=== PATIENT | male | born 1965 | race Caucasian/White ===

== ENCOUNTER 2017-08-13 15:20 | Emergency (ER) | payer OTHER ==
[2017-08-13 15:29] VITALS: BP 139/94; PULSE 65; RESP 15; TEMP 97.7; O2SAT 100
[2017-08-13] MEDS ORDERED: TDAP Vaccine 0.5 mL Syr IM ONE ×2 (15:45→15:58)
[2017-08-13] MEDS ORDERED: Oxycodone/Acetaminophen 5/325 mg Tab PO STA (15:59)
--- NOTE | 2017-08-13 17:10 | ED PDOC ---
Arrival/HPI - General Chief Complaint: Upper Extremity Problem/Injury Time Seen by Provider: 08/13/17 15:41 Historian: Patient - History of Present Illness Narrative History of Present Illness (Text): 08/13/17 17:07 51 yo male w/o significant PMHx come in for evaluation of FB in left thumb sustained 30-40 min [employer], while at work. 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 Otherwise, pt denies weakness, sensory or vascular deficits to injured hand, noted large nail stick out left thumb. Pt denies any other complaints related to injury. Ambulate to Ed for evaluation, in pain. Past Medical History - Provider Review Nursing Documentation Reviewed: Yes - Travel History Have you recently traveled outside [place] w/in the past 3 mons?: No - Past History Past History: No Previous - Tetanus Immunization Tetanus Immunization: Unknown - Psychiatric Hx Substance Use: No - Surgical History Hx Abdominal Aortic Aneurysm Repair: No Family/Social History - Physician Review Nursing Documentation Reviewed: Yes Family/Social History: No Known Family HX Smoking Status: Heavy Smoker > 10 Cigarettes Daily Hx Alcohol Use: Yes Frequency of alcohol use: Socially Hx Substance Use: No Allergies/Home Meds Allergies/Adverse Reactions: Allergies Penicillins Allergy (Verified 08/13/17 15:29) ANAPHYLAXIS Sulfa (Sulfonamide Antibiotics) Allergy (Verified 08/13/17 15:33) ANAPHYLAXIS Review of Systems - Physician Review All systems were reviewed & negative as marked: Yes - Review of Systems Constitutional: Normal Musculoskeletal: Arthralgias, Joint Swelling Skin: Skin Lesions, Other (Left thumb FB) Neurological: Normal Endocrine: Normal Hemo/Lymphatic: Normal Psychiatric: Normal Physical Exam Vital Signs Reviewed: Yes Vital Signs Temp Pulse Resp BP Pulse Ox 08/13/17 15:29 97.7 F 65 15 139/94 H 100 Temperature: Afebrile Blood Pressure: Normal Pulse: Regular Respiratory Rate: Normal Appearance: Positive for: Well-Appearing, Non-Toxic Pain Distress: Moderate (pain) Mental Status: Positive for: Alert and Oriented X 3 - Systems Exam Head: Present: Atraumatic, Normocephalic Upper Extremity: Present: Normal ROM (Left hand), NORMAL PULSES, Tenderness ( Left thumb), Neurovascularly Intact, Capillary Refill < 2s (Left hand) Lower Extremity: Present: Normal Inspection. No: Deformity Neurological: Present: GCS=15, Speech Normal, Motor Func Grossly Intact, Normal Sensory Function, Normal Cerebellar Funct, Norm Deep Tendon Reflexes Skin: Present: Warm, Dry, Normal Color, Other (Left thumb: large nail enter at dorsal aspect over 1st PIPJ and exit palmar aspect Left mid/distal phalanx, mild edema. No wound draining, no obvious deformity.) Psychiatric: Present: Alert, Oriented x 3 Medical Decision Making ED Course and Treatment: 08/13/17 Case discussed and pt was evaluated by ED attending . Wound FB removal performed w/assistance of . Case discussed with [id number] , tetanus, abx, splint and outpt f/u recommend. On re-evaluation, pt is afebrile, hemodynamicaly stable. non-toxic. Left hand: 1st finger FB removed. No difficulty or limitation on FAROM noted after procedure, no neurovascular deficits. Xray review: (+) no-displaced left 1st distal phalanx fx Pt received tetanus, Clindamycin. Thumb spical splint applied to Left 1st finger. Pt advised on course of ds. ref. to f/u with hand specialist in 1-2 days for re-evaluation. Return to ED if any worsening or new changes. - RAD Interpretation Radiology Orders: 08/13/17 15:59 HAND LEFT THUMB [RAD] Stat (+) non-displaced fx distal Left 1st phalanx - Medication Orders Current Medication Orders: Discontinued Medications Clindamycin Phosphate 600 mg/ (Sodium Chloride) 54 mls @ 108 mls/hr IVPB STAT STA PRN Reason: Protocol Stop: 08/13/17 17:09 Last Admin: 08/13/17 17:24 Dose: 108 mls/hr eMAR Start Stop Document 08/13/17 17:24 AD (Rec: 08/13/17 17:24 AD [facility] [id number] Intravenous Solution Start Date 08/13/17 Start Time 17:24 Ibuprofen (Motrin Tab) 600 mg PO STAT STA Stop: 08/13/17 15:54 Last Admin: 08/13/17 16:18 Dose: 600 mg MAR Pain/Vitals Document 08/13/17 16:18 AD (Rec: 08/13/17 16:20 AD [facility] [id number] Pain Reassessment Is This A Pain ReAssessment? No Presence of Pain Presence of Pain Yes Pain Scale Used Pain Scale Used Numeric Location Left, Right or Bilateral Left Pain Location Body Site Thumb Description Constant Sharp Intensity 10 Scale Used Numeric Pain Behavior Facial Grimacing Oxycodone/Acetaminophen (Percocet 5/325 Mg Tab) 1 tab PO STAT STA Stop: 08/13/17 16:00 Last Admin: 08/13/17 16:19 Dose: 1 tab [facility] Pain Assessment Document 08/13/17 16:19 AD (Rec: 08/13/17 16:20 AD [facility] [id number] Pain Reassessment Is this a pain reassessment? No Presence of Pain Presence of Pain Yes Pain Scale Used Pain Scale Used Numeric Location Left, Right or Bilateral Left Pain Location Body Site Thumb Description Description Sharp Intensity of Pain at present 10 Pain Behavior Facial Grimacing Tetanus/Reduced Diphtheria/Acell Pertussis (Boostrix Vaccine Inj) 0.5 ml IM .ONCE ONE Stop: 08/13/17 15:59 Last Admin: 08/13/17 17:24 Dose: 0.5 ml [facility] Immunization Data Document 08/13/17 17:24 AD (Rec: 08/13/17 17:27 AD [facility] [id number] Immunization Data Vaccine Lot Number [id number] Vaccine Expiration Date 06/01/19 Site Given Right Deltoid Route Intramuscular Immunization Units ml Disposition/Present on Arrival - Present on Arrival Any Indicators Present on Arrival: No History of DVT/PE: No History of Uncontrolled Diabetes: No Urinary Catheter: No History of Decub. Ulcer: No History Surgical Site Infection Following: None - Disposition Have Diagnosis and Disposition been Completed?: Yes Diagnosis: Finger fracture, left, Foreign body finger Disposition: HOME/ ROUTINE Disposition Time: 17:23 Patient Plan: Discharge Condition: STABLE Discharge Instructions (ExitCare): Finger Fracture (ED), Soft Tissue Foreign Body (ED) Additional Instructions: SPlint for 3-4 weeks Take medication as prescribed Follow up with Hand specialist in 2 days for re-evaluation. Return to ED if any worsening or new changes. Prescriptions: Clindamycin [Cleocin] 300 mg PO Q6 #28 cap traMADol [Ultram] 50 mg PO TID #10 tab Referrals: [facility] [place] [Outside] - Follow up with primary Richi Hirsch MD [Staff Provider] - Follow up with primary Forms: [employer] ([employer]), WORK NOTE Laceration - Laceration Repair Left thumb Wound Length (In cm): 0.59 in (nail FB) Description Of Wound: Irregular (puncture) Wound Cleansed With: Sterile Saline Anesthesia: Lidocaine 2% (digital block) Wound Examination: Irrigated With Saline, No Tendon Injury With Wound Exploration, Foreign Material Removed Manually (nail removed entirely) Wound Closure: Suture (#3) Suture Technique And Material Used: Interrupted, Nylon (4-0) Wound Complexity: Complex Orthopedic Time Performed: 17:01 Time Out: Side verified, Site verified, Patient ID confirmed Procedure: Splint Type: Thumb spica Location: Left, Hand Consent obtained: Verbal Performed by: Mid-level Provider Diagnosis: Fracture Type: Non-displaced Location: Left, Distal Bone: Phalanx, Thumb, 1st
--- NOTE | 2017-08-14 07:41 | RAD ---
PROCEDURE: Left Thumb radiographs. HISTORY: INJURY COMPARISON: None. TECHNIQUE: AP radiograph of the left hand, as well as spot oblique and lateral images of thumb were obtained. FINDINGS: LEFT THUMB: Cortical disruption at the volar surface of the distal phalanx left thumb is appreciated only in the oblique view with potential retained radiodense foreign body in the local soft tissues. No emphysema soft tissue changes are clearly identified. Findings referral reflect a nondisplaced fracture potentially affecting only the volar cortex of the distal phalanx left thumb. Remainder of the left hand (as seen on the AP view) grossly unremarkable. JOINTS: Degenerative vacuum gas changes are identified at the 1st metatarsal phalangeal joint. SOFT TISSUES: Potential distal volar retained radiodense foreign body at the thumb as discussed above. OTHER FINDINGS: None. IMPRESSION: A limited likely chip fracture of the volar cortex of the distal phalanx of the left thumb is identified. No dislocation. Minimal retained radiodense foreign body is in question at the volar soft tissues of the distal thumb.
== END 2017-08-13 18:31 | disposition home or self-care (01) ==
LOC: ED 15:20
DX: S62.522A Displaced fracture of distal phalanx of left thumb, initial encounter for closed fracture (principal); S60.352A Superficial foreign body of left thumb, initial encounter; W45.0XXA Nail entering through skin, initial encounter; Y92.59 Other trade areas as the place of occurrence of the external cause; Y99.0 Civilian activity done for income or pay; Z23 Encounter for immunization; F17.210 Nicotine dependence, cigarettes, uncomplicated; Z88.0 Allergy status to penicillin